=== PATIENT | female | born 1985 | race Caucasian/White ===

== ENCOUNTER → 2017-06-29 | Outpatient (CLI) | payer OTHER | LOC: HPND 12:35 | DX: O99.282 Endocrine, nutritional and metabolic diseases complicating pregnancy, second trimester (principal); O10.912 Unspecified pre-existing hypertension complicating pregnancy, second trimester; O16.2 Unspecified maternal hypertension, second trimester; O99.212 Obesity complicating pregnancy, second trimester | CPT/HCPCS: 76811 ==